=== PATIENT | male | born 1970 | race Caucasian/White ===

== ENCOUNTER 2016-09-14 02:00 | Inpatient (IN) | payer MEDICAID ==
[2016-09-14 02:24] VITALS: BP 153/100
[2016-09-14] MEDS ORDERED: Ipratropium Neb 0.5 mg/2.5 mL UD HHN ONE (08:26)
[2016-09-14] MEDS ORDERED: Albuterol Nebulizer 2.5mg/3mL HHN ONE (08:26)
[2016-09-14] MEDS: Albuterol Nebulizer 2.5mg/3mL IH SCH ×4 (08:28→19:33)
[2016-09-14] MEDS: Ipratropium Neb 0.5 mg/2.5 mL UD IH SCH ×4 (08:28→19:33)
[2016-09-14 08:51] LABS: HEMATOCRIT 36.8 % (39.0-49.0); HEMOGLOBIN 12.2 gm/dL (13.2-17.3); MEAN CELL VOLUME 86.2 fl (80-99); MEAN CORPUSCULAR HEMOGLOBIN 28.7 pg (26.0-30.0); MEAN CORPUSCULAR HGB CONC 33.3 pg (28.0-36.0); MEAN PLATELET VOLUME 7.3 fl; PLATELET COUNT 306 Th/cmm (150-400); RED BLOOD COUNT 4.26 Mil/cmm (4.30-5.70); RED CELL DISTRIBUTION WIDTH 12.5 % (11.5-20.0); WHITE BLOOD COUNT 14.7 Th/cmm (4.8-10.8)
[2016-09-14] MEDS: Potassium Chloride 20 mEq ER Tab PO SCH (09:24)
[2016-09-14] MEDS: Hydrocodone/APAP 5mg/325mg Tab PO PRN ×2 (09:37→20:58)
[2016-09-14 09:49] LABS: ALB/GLOB RATIO 1.1 (1.0-1.8); ALKALINE PHOSPHATASE 81 U/L (34-104); ANION GAP 8.9 (7.0-16.0); BILIRUBIN,TOTAL 0.7 mg/dL (0.3-1.0); BUN - UREA NITROGEN 14 mg/dL (7-25); BUN/CREATININE RATIO 17.5; CALCIUM SERUM 8.7 mg/dL (8.6-10.3); CARBON DIOXIDE 29.3 mEq/L (21.0-31.0); CHLORIDE 101 mEq/L (98-107); CREATININE - SERUM 0.8 mg/dL (0.7-1.3); GLUCOSE 199 mg/dL (70-105); MAGNESIUM 2.5 mg/dL (1.9-2.7); POTASSIUM SERUM 4.2 mEq/L (3.5-5.1); SGOT 16 U/L (13-39); SGPT/ALT 41 U/L (7-52); SODIUM SERUM 135 mEq/L (136-145)
[2016-09-14 10:14] LABS: NEUTROPHILS 90 % (40-80); PLATELET ESTIMATE ADEQUATE (NORMAL); PLATELET MORPHOLOGY NORMAL (NORMAL); TOTAL CELLS COUNTED 100
[2016-09-14] MEDS ORDERED: methylPREDNISolone SS 40 mg Vial IVP SCH (13:00)
[2016-09-14 15:58] LABS: CHOLESTEROL 162 mg/dL (<200); TRIGLYCERIDES 81 mg/dL (<150)
[2016-09-14] MEDS: INSULIN ASPART, RECOMBINANT 100 UNITS/ML SUBQ SCH ×2 (16:40→21:26)
--- NOTE | 2016-09-14 17:47 | Cardiology ---
The patient of Dr. Donnelly. M-mode technically poor. 2D echo only structure visualized in apical 4-chamber view, which showed normal-sized left ventricle with hypertrophy of the left ventricle, ejection fraction 55%. Left atrium normal. Right ventricular cavity, right atrium normal, no pericardial effusion. CONCLUSION: Hypertrophy of the left ventricle, ejection fraction 55%. Technically poor echo. Doppler study shows prominent A wave consistent with poor compliance of left ventricle with mild mitral regurgitation. [facility]# [id number]
[2016-09-14 19:56] LABS: URINE BILIRUBIN NEGATIVE (NEGATIVE); URINE BLOOD NEGATIVE (NEGATIVE); URINE COLOR YELLOW; URINE GLUCOSE (UA) NEGATIVE (NEGATIVE); URINE KETONE NEGATIVE (NEGATIVE); URINE PROTEIN NEGATIVE (NEGATIVE); URINE UROBILINOGEN 0.2 E.U./dL (0.2 - 1.0)
[2016-09-14 19:57] LABS: URINE BACTERIA OCCASIONAL /hpf (NONE SEEN); URINE EPITHELIAL CELLS RARE /lpf (FEW); URINE RBC NONE SEEN /hpf (0-5); URINE WBC 0-2 /hpf (0-5)
[2016-09-14] MEDS: methylPREDNISolone SS 40 mg Vial IVP SCH (21:15)
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
[2016-09-14] MEDS: guaiFENesin 200 MG/10 ML UDC PO PRN (22:55)
--- NOTE | 2016-09-14 23:33 | Admit Criteria Form ---
Admit Criteria Forms - Admit Criteria Diagnosis: HEART FAILURE: COMMON COMPLICATIONS Clinical Indications for Inpatient Care (Place 'X' for any and all applicable criteria): Ongoing inpatient care may be indicated for heart failure with ANY ONE of the following (1)(2)(3)(4)(5): [ ]I. Ongoing need for care for primary condition requiring frequent therapy adjustments because of changes in cardiac function (eg, drug dosage changes for drugs that are renally metabolized) [ ]II. New-onset heart failure [ ]III. Heart failure with decreased urine output not responsive to attempts to optimize volume status [ ]IV. Acute cardiac ischemia causing or associated with failure [X]V. Complications of heart failure, including ANY ONE of the following: [ ]a) Pericardial effusion [ ]b) Symptomatic pleural effusion [ ]c) O2 saturation <90% or PO2 < 60 mm Hg (8.0 kPa) on room air or require baseline supplemental O2 [ ]d) Tachypnea [X]e) Dyspnea [ ]f) Syncope [ ]g) Change in mental status [ ]h) Acute renal insufficiency that is severe (reduction of more than 50% in estimated glomerular filtration rate from baseline) or progressive reduction of more than 25% in estimated glomerular filtration rate from baseline, with creatinine continuing to rise) [ ]i) Hemodynamic instability [ ]j) Anasarca [ ]k) Clinically significant metabolic abnormalities due to heart failure (eg, new-onset metabolic acidosis) Extended stay beyond goal length of stay for primary condition may be needed until ALL of the following are present(1)(3): [ ]a) Stable and effective diuretic regimen established (or patient on stable dialysis regimen if in chronic renal failure) [ ]b) Breathing comfortably at rest [ ]c) Saturation of arterial oxygen greater than 90% or at acceptable baseline [ ]d) Pulmonary edema absent or improved [ ]e) Hemodynamic stability [ ]f) Volume status acceptable on oral medication [ ]g) Peripheral or sacral edema absent or improved [ ]h) Renal function stable and manageable at a lower level of care [ ]i) Complications (eg, pleural effusion) resolved or manageable at a lower level of care [ ]j) Patient or caregiver has received written discharge instructions or educational material addressing activity level, diet, discharge medications, follow-up appointment, weight monitoring, and what to do if symptoms worsen The original [facility] [employer] content created by Elizabeth Lee has been revised. The portions of the content which have been revised are identified through the use of italic text or in bold, and Elizabeth Lee has neither reviewed nor approved the modified material.All other unmodified content is copyright Elizabeth Lee. Please see references footnoted in the original Elizabeth Lee edition 2016 Admit Criteria Met?: Yes
[2016-09-15] MEDS: Hydrocodone/APAP 5mg/325mg Tab PO PRN ×2 (00:36→18:56)
--- NOTE | 2016-09-15 02:45 | Consultation ---
The patient of Dr. Donnelly Thank you, Dr. Donnelly for this consultation. HISTORY OF PRESENT ILLNESS: This is a 46-year-old male who presented to [facility] for cough, shortness of breath, and congestion. The patient apparently was in the hospital and signed himself out last week because he was concerned about, he was told he needs a pacemaker for his heart. The patient does not see doctor on a regular basis. He is feeling better, he says since he came in. PAST MEDICAL HISTORY: As above. SOCIAL HISTORY: History of smoking up to 3 packs per day, since age of 15, said he quit a week ago, is also methamphetamine user. PHYSICAL EXAMINATION: GENERAL: Awake, alert, not in acute distress. VITAL SIGNS: Temperature is 97.8, pulse 86, respiration is 19, blood pressure 134/75, saturation 95%. CHEST: Good breath sounds, few rhonchi. HEART: Regular rate and rhythm. ABDOMEN: Soft. EXTREMITIES: No edema. CT chest showed fluid in the major and minor fissure. There is a small effusion in the right base. No masses or pneumonia. LABORATORY DATA: WBC is 14.7, hemoglobin 12.2. Sodium 135, potassium 4.2, glucose is 199. IMPRESSION: 1. This is a 46-year-old male with acute bronchitis, pneumonia. 2. Possible congestive heart failure, possibly diastolic. 3. Obesity. 4. Possible chronic obstructive pulmonary disease for many years of smoking. PLAN: 1. Add Pulmicort nebulizer. 2. Bronchodilators. 3. IV antibiotics. 4. Cardiac evaluation. JOB# [id number] [facility]
[2016-09-15] MEDS: methylPREDNISolone SS 40 mg Vial IVP SCH ×2 (06:10→20:37)
[2016-09-15] MEDS: Albuterol Nebulizer 2.5mg/3mL IH SCH ×3 (07:08→14:45)
[2016-09-15] MEDS: Ipratropium Neb 0.5 mg/2.5 mL UD IH SCH ×3 (07:08→14:45)
[2016-09-15 07:13] LABS: HEMOGLOBIN 12.2 gm/dL (13.2-17.3); MEAN CELL VOLUME 86.9 fl (80-99); MEAN CORPUSCULAR HEMOGLOBIN 28.7 pg (26.0-30.0); MEAN PLATELET VOLUME 7.4 fl; PLATELET COUNT 319 Th/cmm (150-400); RED BLOOD COUNT 4.26 Mil/cmm (4.30-5.70); RED CELL DISTRIBUTION WIDTH 12.5 % (11.5-20.0)
[2016-09-15 07:22] LABS: WHITE BLOOD COUNT 18.9 Th/cmm (4.8-10.8)
[2016-09-15 07:39] LABS: ANION GAP 8.8 (7.0-16.0); BUN - UREA NITROGEN 21 mg/dL (7-25); CALCIUM SERUM 8.8 mg/dL (8.6-10.3); CARBON DIOXIDE 29.4 mEq/L (21.0-31.0); CHLORIDE 102 mEq/L (98-107); CREATININE - SERUM 0.7 mg/dL (0.7-1.3); GLUCOSE 182 mg/dL (70-105); POTASSIUM SERUM 4.2 mEq/L (3.5-5.1); SODIUM SERUM 136 mEq/L (136-145)
[2016-09-15] MEDS: INSULIN ASPART, RECOMBINANT 100 UNITS/ML SUBQ SCH ×4 (08:04→21:22)
[2016-09-15 08:21] LABS: NEUTROPHILS 91 % (40-80); PLATELET ESTIMATE ADEQUATE (NORMAL); PLATELET MORPHOLOGY NORMAL (NORMAL); TOTAL CELLS COUNTED 100
[2016-09-15] MEDS: Potassium Chloride 20 mEq ER Tab PO SCH (08:45)
[2016-09-15] MEDS: Atorvastatin Calcium 10 MG TAB PO SCH (08:45)
--- NOTE | 2016-09-15 10:09 | Diagnostic Imaging Report ---
CT scan of the chest without intravenous contrast HISTORY: Mass. Total DLP equals 482 CTDI equals 13.1 Axial sections were obtained from a level above the clavicles down to level below the diaphragm. The heart size is generous. Coronary artery and atherosclerotic vascular calcification noted. No abnormal mediastinal masses. Pleural thickening noted about the right hemithorax. Small right pleural effusion also evident. There is an oval-shaped well-circumscribed density within the right upper hemithorax that appears related to the major fissure and may represent loculated fluid ("pseudotumor"). A small density appears related to the minor fissure and may can't be related to loculated fluid. Follow-up recommended. There is generalized haziness of the interstitial markings. There is a metallic radiodensity noted within the middle mediastinum posterior to the region of the left atrium. Surgical suture material noted within the sternum. Limited sections below the diaphragm demonstrate a decrease in hepatic parenchymal density that may be associated with fatty infiltration. The finding should be correlated with liver function tests. IMPRESSION: 1. Pleural thickening along with a small right pleural effusion. Well-circumscribed oval-shaped density within the right upper hemithorax appears to be related to the major fissure and may represent loculated fluid ("pseudotumor"). A smaller similar density appears related to minor fissure and may be related to loculated fluid. Follow up/monitoring recommended. 2. Metallic density within the middle mediastinum adjacent to the posterior margin of the left atrium. 3. Surgical changes 4. Coronary artery and atherosclerotic vascular calcification 5. Findings consistent with hepatic fatty infiltration. The changes should be correlated with liver function tests.
--- NOTE | 2016-09-15 11:57 | Diagnostic Imaging Report ---
Portable chest x-ray HISTORY: Shortness of breath The heart is enlarged. There is elevation of the right hemidiaphragm. Slight haziness over the right lower hemithorax and mild pleural reaction. Suggestion of mild pleural reaction about the left costophrenic angle. Surgical suture material noted over the mid chest. A metallic density projects over the lower mid chest. IMPRESSION: 1. Cardiomegaly 2. Evidence of mild pleural reaction within the right and left lower hemithoracic regions. 3. Hazy density over the right lower hemithorax. 4. Metallic density projecting over the lower mid chest The overall pulmonary findings appear less obvious than seen on the prior CT scan of September 14, 2016.
[2016-09-15] MEDS: guaiFENesin 200 MG/10 ML UDC PO PRN (18:57)
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
[2016-09-16] MEDS: guaiFENesin 200 MG/10 ML UDC PO PRN ×3 (02:05→21:26)
[2016-09-16] MEDS: Hydrocodone/APAP 5mg/325mg Tab PO PRN ×2 (04:47→21:26)
[2016-09-16] MEDS: Albuterol Nebulizer 2.5mg/3mL IH SCH ×4 (06:52→19:30)
[2016-09-16] MEDS: Budesonide 0.5 Mg/2 mL Ud HHN SCH ×2 (06:53→19:30)
[2016-09-16] MEDS: Ipratropium Neb 0.5 mg/2.5 mL UD IH SCH ×4 (06:53→19:30)
[2016-09-16 06:56] LABS: ANION GAP 2.1 (7.0-16.0); BUN - UREA NITROGEN 22 mg/dL (7-25); BUN/CREATININE RATIO 31.4; CALCIUM SERUM 8.5 mg/dL (8.6-10.3); CARBON DIOXIDE 31.1 mEq/L (21.0-31.0); CHLORIDE 106 mEq/L (98-107); CREATININE - SERUM 0.7 mg/dL (0.7-1.3); GLUCOSE 141 mg/dL (70-105); MAGNESIUM 2.6 mg/dL (1.9-2.7); POTASSIUM SERUM 4.2 mEq/L (3.5-5.1); SODIUM SERUM 135 mEq/L (136-145)
[2016-09-16 07:20] LABS: HEMATOCRIT 34.7 % (39.0-49.0); HEMOGLOBIN 11.8 gm/dL (13.2-17.3); MEAN CELL VOLUME 85.8 fl (80-99); MEAN CORPUSCULAR HEMOGLOBIN 29.1 pg (26.0-30.0); MEAN CORPUSCULAR HGB CONC 33.9 pg (28.0-36.0); MEAN PLATELET VOLUME 8.2 fl; PLATELET COUNT 305 Th/cmm (150-400); RED BLOOD COUNT 4.04 Mil/cmm (4.30-5.70); RED CELL DISTRIBUTION WIDTH 12.9 % (11.5-20.0)
[2016-09-16] MEDS: INSULIN ASPART, RECOMBINANT 100 UNITS/ML SUBQ SCH ×4 (07:21→21:26)
[2016-09-16 08:03] LABS: WHITE BLOOD COUNT 21.8 Th/cmm (4.8-10.8)
[2016-09-16] MEDS: methylPREDNISolone SS 40 mg Vial IVP SCH (09:13)
[2016-09-16] MEDS: Atorvastatin Calcium 10 MG TAB PO SCH (09:14)
[2016-09-16] MEDS: Potassium Chloride 20 mEq ER Tab PO SCH (09:14)
[2016-09-16 09:34] LABS: BAND NEUTROPHILE 5 % (0-10); NEUTROPHILS 85 % (40-80); PLATELET ESTIMATE ADEQUATE (NORMAL); PLATELET MORPHOLOGY NORMAL (NORMAL); TOTAL CELLS COUNTED 100
--- NOTE | 2016-09-16 13:11 | Internal Medicine Prog Note ---
Internal Medicine Subjective - Subjective Patient seen and examined:: with staff, chart reviewed Patient is:: awake, verbal, interactive Patient Complaints of:: congestion Per staff patient is:: poor appetite, other (still easily get sob) Internal Medicine Objective - Results Result Diagrams: 09/16/16 06:00 09/16/16 06:00 Recent Labs: Laboratory Last Values WBC 21.8 Th/cmm (4.8-10.8) H* 09/16/16 06:00 RBC 4.04 Mil/cmm (4.30-5.70) L 09/16/16 06:00 Hgb 11.8 gm/dL (13.2-17.3) L 09/16/16 06:00 Hct 34.7 % (39.0-49.0) L 09/16/16 06:00 MCV 85.8 fl (80-99) 09/16/16 06:00 MCH 29.1 pg (26.0-30.0) 09/16/16 06:00 MCHC Differential 33.9 pg (28.0-36.0) 09/16/16 06:00 RDW 12.9 % (11.5-20.0) 09/16/16 06:00 Plt Count 305 Th/cmm (150-400) 09/16/16 06:00 MPV 8.2 fl 09/16/16 06:00 Band Neutrophils % 5 % (0-10) 09/16/16 06:00 Neutrophils (Manual) 85 % (40-80) H 09/16/16 06:00 Lymphocytes 8 % (20-50) L 09/16/16 06:00 Monocytes 2 % (2-10) 09/16/16 06:00 Platelet Estimate ADEQUATE (NORMAL) 09/16/16 06:00 Platelet Morphology NORMAL (NORMAL) 09/16/16 06:00 RBC Morph Micro Appear NORMAL (NORMAL) 09/16/16 06:00 Sodium 135 mEq/L (136-145) L 09/16/16 06:00 Potassium 4.2 mEq/L (3.5-5.1) 09/16/16 06:00 Chloride 106 mEq/L (98-107) 09/16/16 06:00 Carbon Dioxide 31.1 mEq/L (21.0-31.0) H 09/16/16 06:00 Anion Gap 2.1 (7.0-16.0) L 09/16/16 06:00 BUN 22 mg/dL (7-25) 09/16/16 06:00 Creatinine 0.7 mg/dL (0.7-1.3) 09/16/16 06:00 Est GFR ( Amer) > 60.0 ml/min (>90) 09/16/16 06:00 Est GFR (Non-Af Amer) > 60.0 ml/min 09/16/16 06:00 BUN/Creatinine Ratio 31.4 09/16/16 06:00 Glucose 141 mg/dL (70-105) H 09/16/16 06:00 Hemoglobin A1c % 6.7 % (4.0-6.0) H 09/14/16 08:36 Calcium 8.5 mg/dL (8.6-10.3) L 09/16/16 06:00 Magnesium 2.6 mg/dL (1.9-2.7) 09/16/16 06:00 Total Bilirubin 0.7 mg/dL (0.3-1.0) 09/14/16 08:36 AST 16 U/L (13-39) 09/14/16 08:36 ALT 41 U/L (7-52) 09/14/16 08:36 Alkaline Phosphatase 81 U/L (34-104) 09/14/16 08:36 B-Natriuretic Peptide 321.0 pg/mL (5.0-100.0) H 09/16/16 06:00 Total Protein 6.9 gm/dL (6.0-8.3) 09/14/16 08:36 Albumin 3.6 gm/dL (4.2-5.5) L 09/14/16 08:36 Globulin 3.3 gm/dL 09/14/16 08:36 Albumin/Globulin Ratio 1.1 (1.0-1.8) 09/14/16 08:36 Triglycerides 81 mg/dL (<150) 09/14/16 08:36 Cholesterol 162 mg/dL (<200) 09/14/16 08:36 LDL Cholesterol Direct 125 mg/dL (75-193) 09/14/16 08:36 HDL Cholesterol 39 mg/dL (23-92) 09/14/16 08:36 TSH 1.67 uIU/ml (0.34-5.60) 09/14/16 08:36 Urine Source CLEAN C 09/14/16 17:30 Urine Color YELLOW 09/14/16 17:30 Urine Clarity CLEAR (CLEAR) 09/14/16 17:30 Urine pH 7.0 09/14/16 17:30 Ur Specific [place] 1.020 (1.005-1.030) 09/14/16 17:30 Urine Protein NEGATIVE mg/dL (NEGATIVE) 09/14/16 17:30 Urine Glucose (UA) NEGATIVE mg/dL (NEGATIVE) 09/14/16 17:30 Urine Ketones NEGATIVE mg/dL (NEGATIVE) 09/14/16 17:30 Urine Blood NEGATIVE (NEGATIVE) 09/14/16 17:30 Urine Nitrate NEGATIVE (NEGATIVE) 09/14/16 17:30 Urine Bilirubin NEGATIVE (NEGATIVE) 09/14/16 17:30 Urine Urobilinogen 0.2 E.U./dL (0.2 - 1.0) 09/14/16 17:30 Ur Leukocyte Esterase NEGATIVE (NEGATIVE) 09/14/16 17:30 Urine RBC NONE SEEN /hpf (0-5) 09/14/16 17:30 Urine WBC 0-2 /hpf (0-5) 09/14/16 17:30 Ur Epithelial Cells RARE /lpf (FEW) 09/14/16 17:30 Urine Bacteria OCCASIONAL /hpf (NONE SEEN) 09/14/16 17:30 - Physical Exam Vitals and I&O: Vital Signs Temp 98.2 F 09/16/16 11:47 Pulse 78 09/16/16 11:47 Resp 20 09/16/16 12:00 BP 138/81 09/16/16 11:47 Pulse Ox 98 09/16/16 11:47 Intake & Output 09/15/16 09/16/16 09/16/16 18:59 06:59 18:59 Intake Total 700 50 50 Output Total 1500 Balance -800 50 50 Intake: Intake, IV Amount 50 50 50 Cefepime 1 gm In Dextrose 50 50 50 5% 50 ml @ 100 mls/hr IV Q12H [facility] Rx#:[id number] Oral 650 Output: Urine 1500 Active Medications: Current Medications Acetaminophen (Tylenol) 650 mg PO Q4HR PRN PRN Reason: Pain or Fever >101 Stop: 11/13/16 08:14 Acetaminophen/Hydrocodone Bitart ([place] 5mg/325mg) 1 tab PO Q4H PRN PRN Reason: Pain (Severe) Stop: 11/13/16 08:14 Last Admin: 09/16/16 04:47 Dose: 1 tab Albuterol Sulfate (Albuterol 2.5mg/3ml Neb Ud) 2.5 mg IH QID [facility] Stop: 11/13/16 08:59 Last Admin: 09/16/16 10:55 Dose: 2.5 mg Aspirin (Ecotrin) 81 mg PO DAILY [facility] Stop: 11/13/16 08:59 Last Admin: 09/16/16 09:14 Dose: 81 mg Atorvastatin Calcium (Lipitor) 20 mg PO DAILY [facility] PRN Reason: Protocol Stop: 11/14/16 08:59 Last Admin: 09/16/16 09:14 Dose: 20 mg Benazepril HCl (Lotensin) 10 mg PO DAILY [facility] Stop: 11/14/16 08:59 Last Admin: 09/16/16 09:14 Dose: 10 mg Budesonide (Pulmicort) 0.5 mg HHN BIDRT [facility] Stop: 11/13/16 18:59 Last Admin: 09/16/16 06:53 Dose: 0.5 mg Carvedilol (Coreg) 6.25 mg PO BID [facility] Stop: 11/14/16 16:59 Last Admin: 09/16/16 09:14 Dose: 6.25 mg Clonidine HCl (Catapres) 0.1 mg PO Q6HR PRN PRN Reason: SBP GREATER THAN 160 Stop: 11/13/16 08:14 Last Admin: 09/15/16 13:18 Dose: 0.1 mg Furosemide (Lasix) 40 mg IVP BID [facility] Stop: 11/13/16 08:59 Last Admin: 09/16/16 09:13 Dose: 40 mg Guaifenesin (Robitussin) 200 mg PO Q4HR PRN PRN Reason: Cough or Congestion Stop: 11/13/16 08:14 Last Admin: 09/16/16 07:03 Dose: 200 mg Heparin Sodium (Porcine) (Heparin) 5,000 units SUBQ Q12HR [facility] Stop: 11/13/16 08:59 Last Admin: 09/16/16 09:13 Dose: 5,000 units Cefepime HCl 1 gm/ Dextrose 50 mls @ 100 mls/hr IV Q12H [facility] Stop: 11/13/16 08:14 Last Infusion: 09/16/16 09:45 Dose: Infused Insulin Aspart (Novolog) 0 units SUBQ ACHS [facility] PRN Reason: Protocol Stop: 11/13/16 16:29 Last Admin: 09/16/16 12:02 Dose: Not Given Ipratropium [place] (Atrovent Neb 0.5mg/2.5ml) 0.5 mg IH QID [facility] Stop: 11/13/16 08:59 Last Admin: 09/16/16 10:56 Dose: 0.5 mg Metformin HCl (Glucophage) 500 mg PO BID [facility] Stop: 11/13/16 16:59 Last Admin: 09/16/16 09:14 Dose: 500 mg Mupirocin (Bactroban Oint) 1 appl NS BID [facility] Stop: 09/20/16 17:01 Last Admin: 09/16/16 09:30 Dose: 1 appl Ondansetron HCl (Zofran) 4 mg IV Q8H PRN PRN Reason: Nausea / Vomiting Stop: 11/13/16 08:14 Potassium Chloride (Klor-Con) 20 meq PO DAILY [facility] Stop: 11/13/16 08:59 Last Admin: 09/16/16 09:14 Dose: 20 meq Zolpidem Tartrate (Ambien) 10 mg PO HS PRN PRN Reason: Insomnia Stop: 11/13/16 08:14 Last Admin: 09/14/16 22:55 Dose: 10 mg General: weak, obese HEENT: NC/AT, PERRLA Neck: Supple Lungs: congested, rales, ronchi Cardiovascular: RRR, Normal S1, Normal S2 Abdomen: soft non-tender, globular, positive bowel sound Extremities: excoriation Neurological: no change Internal Medicine Assmt/Plan - Assessment Assessment: acute ch exac acute copd exac mo dm htn depression, meth usage leukocytosis - Plan Plan: cont on iv abx o2 bronchodilator will dw steroid aprreciates pulm and cards input will refer to psych per familys concern mariusz boyd
[2016-09-17] MEDS: Hydrocodone/APAP 5mg/325mg Tab PO PRN (04:11)
[2016-09-17 06:09] LABS: FOLIC ACID 10.7 ng/mL (>3.0)
[2016-09-17 06:15] LABS: % BASOPHILS 0.8 % (0.0-2.0); % EOSINOPHILS 1.9 % (0.0-5.0); % LYMPHOCYTES 21.6 % (20.0-50.0); % MONOCYTES 6.9 % (2.0-10.0); % NEUTROPHILS 68.8 % (40.0-80.0); HEMATOCRIT 36.3 % (39.0-49.0); HEMOGLOBIN 12.2 gm/dL (13.2-17.3); MEAN CORPUSCULAR HEMOGLOBIN 28.6 pg (26.0-30.0); MEAN CORPUSCULAR HGB CONC 33.7 pg (28.0-36.0); MEAN PLATELET VOLUME 7.4 fl; NEUTROPHILE ABSOLUTE 8.2 Th/cmm (1.8-8.0); PLATELET COUNT 337 Th/cmm (150-400); RED BLOOD COUNT 4.28 Mil/cmm (4.30-5.70); RED CELL DISTRIBUTION WIDTH 12.6 % (11.5-20.0)
[2016-09-17 06:25] LABS: WHITE BLOOD COUNT 11.8 Th/cmm (4.8-10.8)
[2016-09-17 06:30] LABS: ALKALINE PHOSPHATASE 77 U/L (34-104); ANION GAP 7.9 (7.0-16.0); BILIRUBIN,TOTAL 0.5 mg/dL (0.3-1.0); BUN - UREA NITROGEN 26 mg/dL (7-25); BUN/CREATININE RATIO 28.9; CALCIUM SERUM 8.5 mg/dL (8.6-10.3); CARBON DIOXIDE 33.7 mEq/L (21.0-31.0); CHLORIDE 101 mEq/L (98-107); CREATININE - SERUM 0.9 mg/dL (0.7-1.3); GLUCOSE 108 mg/dL (70-105); MAGNESIUM 2.4 mg/dL (1.9-2.7); POTASSIUM SERUM 3.6 mEq/L (3.5-5.1); SGOT 61 U/L (13-39); SGPT/ALT 132 U/L (7-52); SODIUM SERUM 139 mEq/L (136-145)
[2016-09-17] MEDS: INSULIN ASPART, RECOMBINANT 100 UNITS/ML SUBQ SCH ×2 (06:32→11:09)
[2016-09-17] MEDS: Budesonide 0.5 Mg/2 mL Ud HHN SCH (07:40)
[2016-09-17] MEDS: Ipratropium Neb 0.5 mg/2.5 mL UD IH SCH (08:41)
[2016-09-17] MEDS: Albuterol Nebulizer 2.5mg/3mL IH SCH (08:41)
[2016-09-17] MEDS: Potassium Chloride 20 mEq ER Tab PO SCH (09:08)
[2016-09-17] MEDS: Atorvastatin Calcium 10 MG TAB PO SCH (09:08)
--- NOTE | 2016-09-17 11:19 | Diagnostic Imaging Report ---
Portable chest x-ray HISTORY: Shortness of breath Compared with prior exam of 2016, there is persistent marked cardiomegaly. There is pulmonary vascular redistribution consistent with cardiac compensation. Persistent small right pleural effusion. IMPRESSION: 1. No significant change with persistent cardiomegaly and findings consistent with congestive heart failure as noted above.
[2016-09-17] MEDS ORDERED: Maalox 30 mL Cup PO PRN (11:32)
[2016-09-17] MEDS: Ipratropium Neb 0.5 mg/2.5 mL UD HHN SCH ×2 (12:03→15:30)
[2016-09-17] MEDS: Albuterol Nebulizer 2.5mg/3mL HHN SCH ×2 (12:03→15:30)
--- NOTE | 2016-09-17 23:41 | Discharge Summary ---
CHIEF COMPLAINT: Transferred for continued care of CHF and possible pneumonia. FINAL DIAGNOSES: Acute CHF exacerbation, leukocytosis, anemia, diabetes, obesity, left ventricular hypertrophy and mild protein calorie malnutrition. HISTORY OF PRESENT ILLNESS: This is a 46-year-old male who has a previous history of hypertension and morbid obesity, was seen initially at outside ER and transferred for continued care and treatment. The patient with CHF, was seen by Cardiology and admitted for further management. PHYSICAL EXAMINATION: VITAL SIGNS: Blood pressure 150/79, respirations 18, pulse 77 and temperature 97.7. GENERAL: Middle-aged male, morbidly obese. NECK: Supple. No mass. LUNGS: Equal breath sounds, otherwise clear to auscultation. HEART: Regular rate and rhythm without appreciable murmurs. ABDOMEN: Soft and nontender. EXTREMITIES: Positive excoriations. NEUROLOGIC: Limited. Moving all four extremities. LABORATORY DATA: WBC 11.2, which is improved. HOSPITAL COURSE: The patient admitted to telemetry, continued on IV diuretics and was started on oral hypoglycemic medication. Echo showed ejection fraction of ____ % with left ventricular hypertrophy. The patient was seen with Dr. Naranjo for Cardiology, Dr. Doss for Pulmonary. The patient's overall condition has improved including his oxygenation. The patient to follow up with primary care doctor upon discharge. CONDITION ON DISCHARGE: Fair. DISCHARGE INSTRUCTIONS: The patient was referred to a environmental protection economist and reinstated the importance of close followup with his conditions. The patient to return to ____ ER if his condition worsens. JOB# [id number]
== END 2016-09-17 17:34 | disposition home or self-care (01) | DRG 194 ==
LOC: TELE 02:00
PROVIDERS: ADMIT Internal Medicine; ATTEND Internal Medicine
DX: I11.0 Hypertensive heart disease with heart failure (principal); J96.00 Acute respiratory failure, unspecified whether with hypoxia or hypercapnia; J44.0 Chronic obstructive pulmonary disease with (acute) lower respiratory infection; E44.1 Mild protein-calorie malnutrition; F15.10 Other stimulant abuse, uncomplicated; D50.9 Iron deficiency anemia, unspecified; I50.33 Acute on chronic diastolic (congestive) heart failure; Z68.43 Body mass index [BMI] 50.0-59.9, adult; J44.1 Chronic obstructive pulmonary disease with (acute) exacerbation; F32.9 Major depressive disorder, single episode, unspecified; E11.9 Type 2 diabetes mellitus without complications; D72.829 Elevated white blood cell count, unspecified; F17.210 Nicotine dependence, cigarettes, uncomplicated; E66.01 Morbid (severe) obesity due to excess calories; G47.33 Obstructive sleep apnea (adult) (pediatric); J20.9 Acute bronchitis, unspecified; Z88.1 Allergy status to other antibiotic agents; Z88.0 Allergy status to penicillin
CPT/HCPCS: 36415-UA; 71010-TC; 71250-TC; 80048-TC; 80053-TC; 80061-TC; 81001-TC; 82140-TC; 82607-90; 82746-90; 82948-90; 83036-90; 83735-TC; 83880-TC; 84443-TC; 85007-TC; 85025-TC; 85027-TC; 90779; 94640; 94760; J0692; J1644; J1815; J1940; J2920; J7613; Z7610